=== PATIENT | female | born 1985 | race Caucasian/White ===

== ENCOUNTER 2020-04-20 02:27 | Emergency (ER) | payer BC ==
[2020-04-20] MEDS ORDERED: Ondansetron 4 MG Tab.DIS PO ONE (03:25)
[2020-04-20] MEDS ORDERED: Ketorolac 60 MG/2 ML SDV IM ONE (03:25)
--- NOTE | 2020-04-20 15:49 | ER ---
HISTORY OF PRESENT ILLNESS: A 35-year-old lady here with complaints of abdominal pain that started yesterday afternoon. It has been slowly getting worse. It started out around the bellybutton area and now it seems to be radiating to the lower right quadrant. The patient tells me she has been taking Midol, but it is not helping. She has been running a low-grade fever. She has been nauseated, but she has not vomited. She has not had any falls or injuries. She currently rates her pain at 6 or 7/10. PAST SURGICAL HISTORY: Hysterectomy 2 months ago with removal of the right ovary. OBJECTIVE: GENERAL APPEARANCE: The patient is awake and alert. She is uncomfortable because of the pain. VITAL SIGNS: Reviewed. She is currently afebrile, pulse 125, blood pressure 132/97. LUNGS: Clear. CARDIAC: Heart sounds distinct without murmurs. ABDOMEN: Soft. There is definite tenderness in the periumbilical area and lower right quadrant as well as the upper right quadrant with guarding. Psoas sign is positive. Bowel sounds are present but hypoactive. SKIN: Warm and dry. LABORATORY DATA AND X-RAY: CBC, CMP, and UA were obtained. They are all basically normal. CT of the abdomen and pelvis without contrast reveals an acute appendicitis attack. DIAGNOSIS: Acute appendicitis. TREATMENT PLAN: The patient was given Toradol earlier in the course of her visit here, 60 mg IM. This helped with the pain. At this point, we will also give her Dilaudid 1 mg subcu. I did consult with Dr. Kolb, surgeon at the [facility] in [place], [place] and he accepted the patient. She will drive by private car. Her will take her to the [facility] directly from here for a surgical consult. The patient's pain is under control upon leaving our facility. She states that she is comfortable unless she is moving much. CRS/MODL /[id number]
--- NOTE | 2020-04-21 09:29 | CT ---
DATE OF SERVICE: 04/20/20 CLINICAL DATA: Abd pain. UNENHANCED ABDOMEN AND PELVIC CT: Multislice acquisition through the abdomen and pelvis without IV or oral contrast was performed. No priors. The lung bases are clear. The heart size is normal. The unenhanced liver appears normal. The gallbladder appears normal. The spleen appears normal. The pancreas appears normal. The right and left adrenals appear normal. The right and left kidneys appear normal. No nephrocalcinosis or nephrolithiasis. No hydronephrosis or hydroureter. There is a small amount of fluid within the bladder. It appears normal. The appendix is dilated measuring 10 mm in diameter. There is periappendiceal fat stranding. There is also a small amount of adjacent fluid. The findings are consistent with appendicitis. No evidence of periappendiceal abscess. No free air. No free fluid. No dilated loops of bowel. No adenopathy. No aortic aneurysm. There is a fat-containing umbilical hernia. IMPRESSION: Abnormal appendix consistent with appendicitis. No evidence of periappendiceal abscess. The patient's physician was notified of the finding. [id number] MTDD
== END 2020-04-20 04:31 ==
LOC: LB.ED 02:27
DX: K35.80 Unspecified acute appendicitis (principal)
CPT/HCPCS: 36415; 74176; 80053; 81001; 85025; 96372; 99285-25